=== PATIENT | female | born 1995 | race Caucasian/White ===

== ENCOUNTER 2020-02-05 17:24 | Emergency (ER) | payer OTHER ==
[~2020-02-05] VITALS: Ht 172.7 cm; Wt 74.8 kg
[2020-02-05] MEDS ORDERED: LIDOCAINE 1% INJ 50 ML MDV IJ ONE (17:48)
[2020-02-05] MEDS ORDERED: LIDOCAINE 2% 20 ML MDV TP ONE (18:00)
--- NOTE | 2020-02-05 18:05 | NUR ---
patient came in to the er c/o right ear pain and redness. On room air, breathing evenly and unlabored. kept comfortable, will continue to monitor accordingly.
[2020-02-05 18:30] VITALS: BP 135/81
--- NOTE | 2020-02-05 18:31 | NUR ---
Patient discharged to home in stable condition. Written and verbal after care instructions given. Patient verbalizes understanding of instruction.
== END 2020-02-05 18:31 | disposition home or self-care (01) ==
LOC: ER 17:31
DX: T16.1XXA Foreign body in right ear, initial encounter (principal); H60.11 Cellulitis of right external ear; W45.8XXA Other foreign body or object entering through skin, initial encounter; Y93.89 Activity, other specified; Y92.89 Other specified places as the place of occurrence of the external cause; Y99.8 Other external cause status
CPT/HCPCS: 10120; 99285; J3490